=== PATIENT | female | born 1995 | race Caucasian/White ===

== ENCOUNTER 2024-03-01 20:05 | Emergency (ER) | payer BC ==
[~2024-03-01] VITALS: Ht 175.3 cm; Wt 74.8 kg
[2024-03-01 23:04] VITALS: BP 128/80; TEMP 98.4; O2SAT 99
== END 2024-03-01 23:04 | disposition home or self-care (01) ==
LOC: ER 21:09
DX: S06.0X0A Concussion without loss of consciousness, initial encounter (principal); Z88.0 Allergy status to penicillin; W01.0XXA Fall on same level from slipping, tripping and stumbling without subsequent striking against object, initial encounter; Y93.89 Activity, other specified; Y92.89 Other specified places as the place of occurrence of the external cause; Y99.8 Other external cause status
CPT/HCPCS: 70450-TC; 72125-TC